=== PATIENT | female | born 1995 | race Caucasian/White ===

== ENCOUNTER 2018-06-01 00:16 | Outpatient (CLI) | payer MEDICAID, SELFPAY ==
--- NOTE | 2018-06-01 06:49 | DI.REPORT_ITS ---
SYMPTOM/DIAGNOSIS: 18 WEEK ANATOMY SURVEY Z34.90 OB ULTRASOUND: Comparison is made with 16 Mar 2018. The fetus was in variable position during the exam. The placenta is posterior. The biometric measurements correspond to 18 weeks 6 days consistent with dating from 1st ultrasound. No abnormalities are identified. The amount of amniotic fluid appears visually normal. IMPRESSION: survey is within normal limits. Many abnormalities cannot be diagnosed. A normal exam does not exclude a congenital anomaly. Radiology No. [id number] LMP: Exam Date: [facility] wks days on EDC ([facility]) 10/26/18 Confirmed: HISTORY: SURVEY ---- PREDICTED GESTATIONAL AGE NUMBER 19 +0 weeks with a range of 18 +0 week to 20 +0 weeks. 1 Determined by___1STUS___LMP_XX__HISTORY Info. pertaining to fetus # PLACENTA PRESENTATION Grade I Cephalic___ Anterior___Posterior___ Breech____ Right Left Transverse(head right___ Fundal___Low-lying___Previa___ Transverse(head left___ Varying___X___ BIOMETRY AMNIOTIC FLUID BPD: 42 mm 18 +5 weeks Normal HC: 160 mm 18 +6 weeks AC: 134 mm 18 +6 weeks FL: 29 mm 18 +6 weeks AMNIOTIC FLUID INDEX >26 WK CRL: mm weeks Cisterna Magna: 3 mm CI: 85 RUQ: LUQ Cerebellum: 1.9 cm EFW: 261 grams Percentile RLQ: LLQ Total: cms Composite AGE= 18 +6 wks EDC by US___10/27/18 BIOPHYSICAL PROFILE ANATOMY IDENTIFIED SCORE 0/2 Heart: 4-Chamber_X__Rate:BPM___145__ LVOT:____X RVOT:___X____ Amniotic Fluid(>2cms)____ Stomach:___X____ Kidneys:_X Respirations (>30 secs) Bladder:____X____ Post. Fossa:___X Body Flex/Extension 3 vessel cord:___X____Ventricles:____X cord insertion:__X___ Lips:_X___ Extremity Flex/Extension spinal morphology:__X Nose:X Total Score= Palate:__X NS=not seen
== END 2018-06-01 00:17 ==
PROVIDERS: PCP Family Medicine; Visit Provider Advanced Practice Midwife
DX: Z34.92 Encounter for supervision of normal pregnancy, unspecified, second trimester (principal)
CPT/HCPCS: 76805

== ENCOUNTER 2018-08-06 16:20 | Outpatient (CLI) | payer MEDICAID, SELFPAY ==
[2018-08-06 16:58] LABS: HCT 33.6 % (36.0-46.0); HGB 11.7 g/dL (12.0-15.5); Mean Corp. HGB Concentration 34.8 g/dL (32.0-36.0); Mean Corpuscular Hemoglobin 33.1 pg (27.0-33.0); Mean Corpuscular Volume 95.2 fL (80-95); Mean Platelet Volume 10.1 fL (8.0-11.0); Platelet Count 313 x1000/uL (130-400); RBC 3.53 m/cumm (4.00-5.20); RBC Distribution Width 13.3 % (11.7-14.6); White Blood Cell Count 14.86 k/cumm (4.4-10.8)
[2018-08-06 17:42] LABS: Glucose,1 Hr (Glucola) 107 mg/dL (80-140)
== END 2018-08-06 16:40 ==
PROVIDERS: Obstetrics & Gynecology; PCP Family Medicine; Visit Provider Obstetrics & Gynecology Gynecology
DX: O34.219 Maternal care for unspecified type scar from previous cesarean delivery (principal)
CPT/HCPCS: 36415; 82950; 85027

== ENCOUNTER 2018-09-13 01:17 | Outpatient (CLI) | payer MEDICAID, SELFPAY ==
--- NOTE | 2018-09-13 11:00 | DI.US_ITS ---
SYMPTOM/DIAGNOSIS: SIZE < DATES, O26.843 OBSTETRICAL ULTRASOUND: Comparison is made with 01 August 2018. The fetus is in cephalic position. The biometric measurements correspond to 33 weeks 4 days. The estimated weight is 2151 grams, corresponding to the 26%. The amniotic fluid index appears normal at 14.8 IMPRESSION: size and amniotic fluid are within normal limits. Many abnormalities cannot be diagnosed. A normal exam does not exclude a congenital anomaly. Radiology No. [id number] LMP: Exam Date: 09/13/18 [facility] wks days on EDC ([facility]) 10/26/18 Confirmed: HISTORY: SIZE , DATES ---- PREDICTED GESTATIONAL AGE NUMBER 33 +6 weeks with a range of 32 +6 week to 34 +6 weeks. 1 Determined by___1STUS___LMP___HISTORY Info. pertaining to fetus # PLACENTA PRESENTATION Grade II Cephalic_XX__ Anterior___Posterior__XX_ Breech____ Right Left Transverse(head right___ Fundal___Low-lying___Previa___ Transverse(head left___ Varying BIOMETRY AMNIOTIC FLUID BPD: 85 mm 34 +1 weeks Normal HC: 302 mm 33 +3 weeks AC: 288 mm 32 +6 weeks FL: 65 mm 33 +4 weeks AMNIOTIC FLUID INDEX >26 WK CRL: -- mm -- weeks Cisterna Magna: mm CI: RUQ:_4.8____LUQ___3.8 Cerebellum: -- cm EFW: 2151 grams 26% Percentile RLQ:_3.8 LLQ___2.3____ Total:___14.8_cms Composite AGE= 33 +4 wks EDC by US____10/28/18 BIOPHYSICAL PROFILE ANATOMY IDENTIFIED SCORE 0/2 Heart: 4-Chamber___Rate:BPM__144 BPM___ LVOT: RVOT: Amniotic Fluid(>2cms)____ Stomach: Kidneys: Respirations (>30 secs) Bladder: Post. Fossa: Body Flex/Extension 3 vessel cord: Ventricles: cord insertion: Lips:____ Extremity Flex/Extension spinal morphology: Nose: Total Score= Palate: NS=not seen
== END 2018-09-13 01:37 ==
PROVIDERS: PCP Family Medicine; Visit Provider Obstetrics & Gynecology
DX: O26.843 Uterine size-date discrepancy, third trimester (principal); Z36.2 Encounter for other antenatal screening follow-up
CPT/HCPCS: 76816

== ENCOUNTER 2018-09-19 17:32 | Emergency (ER) | payer MEDICAID, SELFPAY ==
[2018-09-19 17:36] VITALS: BP 96/52; PULSE 88; RESP 16; TEMP 37; O2SAT 99
--- NOTE | 2018-09-19 18:02 | W.ED.GENAD ---
Discharge Plan Disposition Patient Disposition: HOME Condition: Fair Discharge Details Chief Complaint: Cellulitis Clinical Impression: Abscess Primary Care Provider: Matt Casey ED Provider: Leslie Castrejon Home Meds and New Rx's Prescriptions: New cephalexin [Keflex] 500 mg capsule 500 mg PO QID Qty: 20 RF: 0 Continue PNV cmb#95-ferrous fumarate-FA [ Formula] 1 EACH tablet 1 tab-cap PO DAILY RF: 0 Discharge Instructions Instructions: Abscess (ED) Additional Instructions: Keep wound clean, dry, covered. You may change the dressing tomorrow. Please monitor for signs of spreading infection including surrounding redness, warmth, fevers or chills. If these begin please start Keflex as prescribed. If you begin the antibiotics please take the entire course even if symptoms improve. Please follow-up with CLINICAL INFORMATICS MANAGER as previously scheduled Referrals: Ai Arnold MD [ [facility] STAFF PHYSICIAN] - Medical Decision Making Patient is a 22-year-old female . 35-week gestation. Presenting today, accompanied by significant other, with chief concern of abscess along the right lateral aspect of section scar. The was completed in March 2017. States that the incision is healed quite well and she was not having any complications until the past 3 days. States that it started as a pimple and has grown in size since then. Significant other did try to pop this . However, no discharge was expressed. She denies any abdominal discomfort. Has good movement per her report. Reports she is otherwise feeling well. No fevers or chills On exam, patient has a 1 cm abscess on the lateral aspect of the scar. No surrounding erythema or warmth. Area is quite fluctuant. This was explored with a ultrasound which confirmed pocket of fluid. Vital signs within normal limits. Blood pressure is noted to be slightly low but I did review historically and patient does typically run in this range Consulted with Dr. Arnold regarding incision and drainage and technique that she would want assuming patient will be having upcoming repeat in the same area. We discussed needle aspiration versus incising the area. She advised open drainage of the abscess. Advised lidocaine to numb the skin. I discussed this plan with the patient. Discussed risk/benefits as well as expected procedural steps. She was understanding and wished to proceed Prior to beginning procedure, LET was applied to the area for 15 minutes. Using standard sterile technique, the area was first cleansed and then infiltrated with 1% lidocaine plain. 1 cc was used. The sufficiently anesthetized the area. While this was infusing, small amount of pus was noted to extrude from the central most point. An 11 blade was then used to incise the area. Thick yellow discharge was then expressed from the abscess. This was flushed with sterile saline and loculations were broken. Patient tolerated this well. Sterile, nonadhesive dressing was placed over this As patient is unable to see this wound secondary to her abdominal girth at this time, I have shown her significant other how to care for this. She reports that he will be performing dressing changes for her. We did discuss signs symptoms of worsening infection. At this point, there is no surrounding erythema or findings to suggest cellulitis, I do not feel that antibiotics are necessary. However, we will prescribed Keflex in the event that she develop any new or worsening symptoms. She has an appointment in 3 days with OB for follow-up. She was given strict return precautions. All of her questions and concerns were addressed and she is in agreement this plan. HPI General Mode of arrival: ambulatory. Date/Time Provider Initiated Documentation: 09/19/18 17:34. Limitations to Documentation: no limitations. Information obtained by: patient and family (accompanied by significant other). History of Present Illness 22 year old F presents to the emergency department with the chief complaint of abscess, described as moderate, with intensity rated at 7. Quality is described as aching, and is localized to the abdomen. Patient reports no radiation. Patient started experiencing this day(s) (3) and it has been constant. No relieving factors improve symptom(s), No exacerbating factors reported . Patient notes denies chest pain, cough, fever/chills and rash. Patient did receive the following treatments prior to arrival, none Related Data Home Medications Medication Instructions Recorded Confirmed PNV cmb#95-ferrous fumarate-FA 1 tab-cap PO DAILY tab-cap 03/16/18 09/19/18 [ Formula Tablet] cephalexin [Keflex] 500 mg PO QID #20 cap 09/19/18 Previous Rx's Medication Instructions Recorded cephalexin [Keflex] 500 mg PO QID #20 cap 09/19/18 Allergies Allergy/AdvReac Type Severity Reaction Status Date / Time No Known Allergies Allergy Unverified 09/19/18 17:43 General Stated Complaint: Cellulitis YULY: 3 Review of Systems Constitutional Reports as per HPI, Denies chills and Denies fever(s) Cardiovascular Denies chest pain Respiratory Denies cough Genitourinary Denies system reviewed and no additional complaints, except as docu (she denies change in urinary habits) Musculoskeletal Reports as per HPI Integumentary/Breasts Reports as per HPI, Reports erythema and Reports skin swelling Neurologic Reports as per HPI, Denies sensory deficit and Denies paresthesias PFS History of heroin use (Resolved) (Acute ~08/06/18) 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 History of delivery, currently (Acute 08/06/18) Family History Mother Substance abuse Father Substance abuse Alcohol abuse Neoplasm Sister No problems noted. Brother No problems noted. Brother No problems noted. Brother No problems noted. Brother No problems noted. Other Cerebrovascular accident section (Acute 12/10/14) Family History Mother Substance abuse Father Substance abuse Alcohol abuse Neoplasm Sister No problems noted. Brother No problems noted. Brother No problems noted. Brother No problems noted. Brother No problems noted. 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 History of delivery, currently (Acute 08/06/18) Social History adopted: No foster care: No household members: significant other number of children: 1 current occupational status: employed current occupation: PRODUCT MARKETING COORDINATOR Smoking/Tobacco Use Status: Current every day substance use type: marijuana seatbelt use: always Surgical History section (Acute 12/10/14) Social History adopted: No foster care: No household members: significant other number of children: 1 current occupational status: employed current occupation: PRODUCT MARKETING COORDINATOR Smoking/Tobacco Use Status: Current every day substance use type: marijuana seatbelt use: always Exam Const General: cooperative, healthy appearing, comfortable, no acute distress and well developed Nutritional Appearance: average body habitus and well nourished Orientation: alert and awake Resp Effort & Inspection: normal respiratory effort, able to speak in complete sentences and no respiratory distress Cardio Rate: regular rate Rhythm: regular rhythm GI Inspection: abnormal to inspection (abscess as below. Abdomen is nontender, consistent with history of 35 week gestation) Skin General skin exam: erythema (patient has focal 1cm area of erythema and fluctuance concerning for abscess. No opening in the skin, no drainage. No surrounding erythema) Neuro General: alert and awake Cognition: normal cognition Speech: speech normal Gait: normal gait Sensory Exam: no sensory deficits noted Psych Appearance: grossly normal and well kempt Mental Status: mental status grossly normal Speech and Movement: speech and movement normal Course Vital Signs Temperature 37 C 09/19/18 17:36 Pulse 88 09/19/18 17:36 Respiratory Rate 16 09/19/18 17:36 Blood Pressure 96/52 L 09/19/18 17:36 Pulse Oximetry 99 09/19/18 17:36 Temperature 37 C 09/19/18 17:36 Temperature Source Tympanic 09/19/18 17:36 Pulse 88 09/19/18 17:36 Respiratory Rate 16 09/19/18 17:36 Respiratory Effort Non-Labored 09/19/18 17:36 Blood Pressure 96/52 L 09/19/18 17:36 Blood Pressure Position Sitting 09/19/18 17:36 Pulse Oximetry 99 09/19/18 17:36 Oxygen Delivery Method Room Air 09/19/18 17:36 Oxygen Flow Rate 0 09/19/18 17:36 Pain Level 7 09/19/18 17:36
== END 2018-09-19 18:59 | disposition home or self-care (01) ==
LOC: ER 22:57
PROVIDERS: Emergency Provider Physician Assistant; PCP Family Medicine
DX: L02.211 Cutaneous abscess of abdominal wall (principal); Z3A.35 35 weeks gestation of pregnancy
CPT/HCPCS: 10060

== ENCOUNTER 2018-09-28 17:14 | Observation (INO) | payer MEDICAID, SELFPAY ==
[2018-09-28] MEDS: Terbutaline 1 MG/ML VIAL 0.25 MG SC ×2 (18:17→19:03)
[2018-09-28] MEDS: MORPHine 10 MG/ML VIAL SC (20:51)
[2018-09-28] MEDS: Lactated Ringers 1,000 ML 150 ML IV (20:51)
[2018-09-28 21:10] LABS: HCT 31.4 % (36.0-46.0); HGB 10.7 g/dL (12.0-15.5); Mean Corp. HGB Concentration 34.1 g/dL (32.0-36.0); Mean Corpuscular Hemoglobin 32.5 pg (27.0-33.0); Mean Corpuscular Volume 95.4 fL (80-95); Mean Platelet Volume 10.7 fL (8.0-11.0); Platelet Count 232 x1000/uL (130-400); RBC 3.29 m/cumm (4.00-5.20); RBC Distribution Width 12.7 % (11.7-14.6); White Blood Cell Count 16.49 k/cumm (4.4-10.8)
[2018-09-29] MEDS: Zolpidem 5 MG TAB PO (00:10)
[2018-09-29] MEDS: Terbutaline 1 MG/ML VIAL 0.25 MG SC (00:10)
[2018-09-29] MEDS: Sodium Citrate 30 ML CUP PO (00:10)
[2018-09-29] MEDS: Ondansetron 4 MG/2 ML VIAL IVP ×2 (00:34→05:52)
[2018-09-29] MEDS: Normal Saline Flush 10 ML SYR IVP ×2 (00:35→05:52)
[2018-09-29] MEDS: diphenhydrAMINE 25 MG CAP PO (00:49)
[2018-09-29] MEDS: Lactated Ringers 1,000 ML 150 ML IV (03:23)
== END 2018-09-29 06:35 | disposition home or self-care (01) ==
PROVIDERS: Admitting Provider Obstetrics & Gynecology; PCP Family Medicine; Referring Provider Advanced Practice Midwife; Visit Provider Obstetrics & Gynecology
DX: O60.03 Preterm labor without delivery, third trimester (principal); Z3A.36 36 weeks gestation of pregnancy; O34.211 Maternal care for low transverse scar from previous cesarean delivery
CPT/HCPCS: 36415; 85027; 86850; 86900; 86901; 96360; 96361; G0378; J2270; J2405

== ENCOUNTER 2018-10-01 13:11 | Outpatient (REF) | payer MEDICAID, SELFPAY | END 2018-10-01 13:31 | LOC: LBN 13:11 | PROVIDERS: PCP Family Medicine; Visit Provider Obstetrics & Gynecology | DX: O34.219 Maternal care for unspecified type scar from previous cesarean delivery (principal); Z36.85 Encounter for antenatal screening for Streptococcus B | CPT/HCPCS: 87081 ==

== ENCOUNTER 2018-10-16 22:42 | Inpatient (IN) | payer MEDICAID, SELFPAY ==
[2018-10-17] VITALS (8 sets, daily range): BP systolic 90; BP diastolic 58; PULSE 62; RESP 16; TEMP 36.5; O2SAT 98–100
[2018-10-17] MEDS: Terbutaline 1 MG/ML VIAL 0.25 MG SC (01:04)
[2018-10-17] MEDS: Acetaminophen 325 MG TAB 650 MG PO (01:05)
--- NOTE | 2018-10-17 02:58 | HPE_ITS ---
Date of service: 10/17/18 Time of Service: 02:58 Assessment and Plan (1) History of delivery: Current visit: Yes Status: Chronic Plan to proceed with repeat section. Risks of surgery were dis cussed with the patient including hemorrhage, infection and injury to other organs such as bowel and bladder. All questions were answered to the patient's satisfaction and consent for surgery was obtained. (2) Normal labor: Current visit: Yes Status: Acute History of Present Illness Chief Complaint: Contractions. Narrative: 22 year old @ 38 weeks gestation presents with regular and painful contractions for the last several hours. She denies any leakage of fluid or vaginal bleeding. Cervical exam on in itial evaluation was 2cm in dilatation. Her obstetrical history is significant for 2 prior sections and she desires to proceed with repeat this time as well. 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 She is not taking suboxone and reports no drugs use this . Review of Systems Review of Systems All systems reviewed & are unremarkable except as noted in HPI and below PFSH Family History Mother Substance abuse Father Substance abuse Alcohol abuse Neoplasm Sister No problems noted. Brother No problems noted. Brother No problems noted. Brother No problems noted. Brother No problems noted. Other Stroke Social History adopted: No foster care: No household members: significant other number of children: 1 current occupational status: employed current occupation: SERVICE OPERATIONS MANAGER Smoking/Tobacco Use Status: Current every day substance use type: marijuana seatbelt use: always History History 3 Para Hx # Term Pregnancies 2 Multiple births Hx # Pregnancies Ectopic pregnancies AB induced Hx Number of Living Children 2 AB spontaneous Past Pregnancies Del. Date GA/Weeks # Outcome Route Wgt Sex Labor Lgth Anesthesia Location Prov Complic 12/10/14 37 No Successful 6 lb 1 oz Female [facility] 03/30/17 39 No Successful 6 lb 7 oz Female [facility] Delivery Date: 03/30/17 On 07/28/18 @ 11:23 Judith Escamilla RN Breech presentation Delivery Date: 12/10/14 No notes to display Meds Home Medications Medication Instructions Recorded Confirmed Type PNV cmb#95-ferrous fumarate-FA 1 tab-cap PO DAILY tab-cap 03/16/18 10/13/18 History [ Formula Tablet] Allergies Allergy/AdvReac Type Severity Reaction Status Date / Time No Known Allergies Allergy Unverified 10/13/18 11:53 Exam HENMT Head: normal to inspection Eyes General: appearance normal, both eyes and all related structures Resp Effort & Inspection: normal respiratory effort Auscultation: clear to auscultation bilaterally Cardio Rate: regular rate Rhythm: regular rhythm Heart Sounds: S1 normal and S2 normal Skin General skin exam: no rashes or lesions noted Results Labs : 10/17/18 02:51
[2018-10-17 03:36] LABS: HCT 32.3 % (36.0-46.0); HGB 10.8 g/dL (12.0-15.5); Mean Corp. HGB Concentration 33.4 g/dL (32.0-36.0); Mean Corpuscular Hemoglobin 31.7 pg (27.0-33.0); Mean Corpuscular Volume 94.7 fL (80-95); Mean Platelet Volume 10.8 fL (8.0-11.0); Platelet Count 239 x1000/uL (130-400); RBC 3.41 m/cumm (4.00-5.20); RBC Distribution Width 12.7 % (11.7-14.6); White Blood Cell Count 16.86 k/cumm (4.4-10.8)
[2018-10-17] MEDS: Lactated Ringers 1,000 ML 200 ML IV (03:37)
[2018-10-17 04:15] LABS: *AMPHETAMINES SCREEN URINE Negative (Negative); *BARBITURATES SCREEN URINE Negative (Negative); *BENZODIAZEPINES SCREEN URINE Negative (Negative); Cannabinoids THC POSITIVE (Negative); Cocaine Screen,Urine Negative (Negative); METHADONE URINE SCREEN Negative (Negative); OPIATES URINE SCREEN Negative (Negative)
[2018-10-17 04:17] LABS: Tricyclic Antidepressants Negative (Negative)
--- NOTE | 2018-10-17 04:53 | W.PM.OP ---
Date of service: 10/17/18 Time of Service: 04:53 Operative Note DATE OF PROCEDURE: 10/17/18 PRE-OP DIAGNOSIS: 38 weeks. Prior section. Labor POST-OP DIAGNOSIS: same PROCEDURE: Repeat low transverse section SURGEON: Theron Fabian PARTS PICKER: Jean Paul Goncalves ANESTHESIA: spinal and epidural ESTIMATED BLOOD LOSS: 500 PATHOLOGY: none sent COMPLICATIONS: None Patient was transported to: floor Patient's condition: stable Findings: 1. Normal uterus, tubes, and ovaries. 2. Scarring in the vesicouterine space. 3. Delivered LBF 7,8. Nuchal cord x 2 Procedure Description: The patient was taken to the operating room and after combined spinal/epidural anesthesia was administered the patient was placed in supine position. The patient was prepped and draped in the usual sterile manner. A hernandez catheter had been placed prior to surgery. A #10 scalpel was used to make a Pfannestiel incision through the previous scar. Dissection was taken down to the fascia with the scalpel. The fascia was incised in the midline with the scalpel and the incision was carried laterally with Bradshaw scissors. The fascia was dissected off the underlying layer of rectus muscles with both blunt and sharp dissection. The rectus was divided in the midline with sharp and blunt dissection and the peritoneum entered sharply. The peritoneal incision was extended superiorly and inferiorly with Bradshaw scissors. The vesicouterine flap was elevated with pickups and dissected down with Metzenbaum scissors. A low transverse uterine incision was made with the scalpel and extended laterally in either direction via stretch. The was found in cephalic presentation and delivered atraumatically. Delivered a vigorous LBF with of 7 and 8 and nuchal cord x2. The placenta was manually extracted. The uterus was exteriorized and cleared of all clots and debris. The uterine incision was closed with a running locked stitch of #1 chromic. A second imbricating layer of #1 chromic completed the repair. The uterus was returned to the abdomen. The peritoneum was closed with a running stitch of 2-0 vicryl. The subfascial space was inspected and hemostasis achieved with limited use of the Bovie cautery. The fascia was closed with a running stitch of 0-Vicryl. The subcutaneous tissues were closed with interupted sutures of 3-0 Vicryl. The skin was closed with a running subcuticular stitch of 4-0 monocryl and dermabond applied. The procedure was concluded at this point. Sponge lap and needle counts were correct at the conclusion of the procedure and the patient was transferred to recovery in stable condition.
[2018-10-17] MEDS: Ketorolac 30 MG/ML VIAL IVP ×3 (07:11→18:57)
--- NOTE | 2018-10-17 07:16 | PDOC.ANES ---
Date of service: 10/17/18 Time of Service: 07:16 Anesthesia Note Report Anesthesia Note: Pt. is able to move lower extremities and bend both legs at her knees. She is now complaining of 10/10 abdominal/incisional discomfort and is ready for epidural catheter to be dosed. Catheter is dressed and intact, continues to be at 11cm at skin. Pt. received a total of 20 ml clinician bolus from pump with relief of discomfort to a 1/10 and no increase in leg numbness or heaviness. Plan is to maintain this epidural until day of discharge. Current rate is 10ml/hr with a PCEA of 5ml every 15 minutes with a lockout of 4/hour. Once catheter removed, may discuss doing a bilateral TAP block prior to going home if skin incision pain is not tolerable. Goal is to avoid narcotic analgesia IV/PO if at all possible per patient wishes.
[2018-10-17] MEDS: Naloxone 0.4 MG/ML VIAL IVP ×5 (09:44→20:17)
[2018-10-17] MEDS: Normal Saline Flush 10 ML SYR IVP ×7 (09:45→18:58)
[2018-10-17] MEDS: Lactated Ringers 1,000 ML 120 ML IV ×2 (12:50→21:07)
--- NOTE | 2018-10-17 15:49 | PDOC.ANES ---
Date of service: 10/17/18 Time of Service: 15:49 Anesthesia Note Report Anesthesia Note: Performed a patient chack. Pt. states she has had some itching with the epidural. The PRN Narcan seems to relieve this. Plan is to use either Narcan or Nubaine for Pruritus throughout her stay as it is working. She experienced a fall today while trying to get out of bed by herself. Nurses reinforced to her the importance of getting assitance when getting out of bed. Her epidural dressing is intact. Catheter seems to have migrated 1.5 cm out and is not slightly less than 10cm at skin. Pt's biggest concern is that she still has motor weakness with her RLE and some numbness. She is able to bend at the knee with limited flexion and move her foot but this is less than on her Left side which she states feels normal. She does believe it is improving slowly over time. As her symptoms seems to be improving, although slowly, plan is to monitor her lower extremity sensory/motor assessment hourly. If there is any concern that the improvement to baseline stops or reverses course, then further studies will be completed to asses for possible, although unlikely epidural/spinal hematoma. Anesthesia to be notified of any stall or decline in motor/sensory exam of either lower extremity.
--- NOTE | 2018-10-17 16:00 | DI.US_ITS ---
SYMPTOMS/DIAGNOSIS: PAIN AND SWELLING RIGHT LOWER EXTREMITY ULTRASOUND: The femoral and popliteal veins and visualized portions of the calf veins are freely compressible. No thrombus is visible. The Doppler venous waveform augments normally. No superficial thrombophlebitis or Garcia's cyst is seen. IMPRESSION: Negative right lower extremity ultrasound. No evidence of DVT.
[2018-10-17] MEDS: Ondansetron 4 MG/2 ML VIAL IVP ×2 (16:08→23:30)
--- NOTE | 2018-10-17 16:24 | DI.VRAD_ITS ---
EXAM: US Right Duplex Lower Extremity Veins, Limited EXAM DATE/TIME: 10/17/2018 4:04 PM CLINICAL HISTORY: 22 years old, female; Signs and symptoms; Other: Pain and swelling TECHNIQUE: Real-time Duplex ultrasound of the Right Lower Extremity with 2-D rivas scale, color Doppler flow and spectral waveform analysis. Limited exam was focused on the right lower extremity veins. COMPARISON: No relevant prior studies available. FINDINGS: The visualized deep veins of the right lower extremity are patent and compressible. No evidence of deep venous thrombosis. IMPRESSION: Negative examination for DVT. Dictated and Authenticated by: Jake Chowdhury MD. Ordering:PITER Crump MD
--- NOTE | 2018-10-17 21:48 | DI.CT_ITS ---
SYMPTOM/DIAGNOSIS: ? SPIRAL EPIDURAL HEMATOMA, MOTOR SENSORY DEFICIT LUMBAR SPINE CT: Images were performed from the lower thoracic region through the sacrum after IV contrast. There is no evidence of fracture. The disc spaces are well maintained. There is an epidural catheter seen at the L 3 level. There is air seen with the epidural space secondary to the presence of the catheter. No fluid collection or hematoma is visible. The uterus appears enlarged secondary to recent status. IMPRESSION: Epidural catheter and epidural air. No visible abscess.
--- NOTE | 2018-10-17 23:09 | DI.VRAD_ITS ---
EXAM: CT Lumbar Spine With Contrast EXAM DATE/TIME: 10/17/2018 10:11 PM CLINICAL HISTORY: 22 years old, female; Signs and symptoms; Numbness; Patient HX: Right sided numbness/motor/sensory deficit, rule out spinal epidural hematoma. ; Additional info: Recent epidural for TECHNIQUE: Axial computed tomography images of the lumbar spine with intravenous contrast. All CT scans at this facility use at least one of these dose optimization techniques: automated exposure control; mA and/or kV adjustment per patient size (includes targeted exams where dose is matched to clinical indication); or iterative reconstruction. CONTRAST: 100 ml of Omipaque 350 administered intravenously. COMPARISON: No relevant prior studies available. FINDINGS: Vertebrae: No acute fracture. Normal alignment. Epidural space: Epidural catheter in place with tip in posterior epidural space at L3 level. Multiple adjacent pockets of epidural air seen in posterior and right lateral epidural space extending to the L2-L3 foramina which appears to be secondary to instrumentation. No evidence of epidural hematoma or fluid collection. No canal stenosis. Discs/Spinal canal/Neural foramina: See Epidural Space Finding. Soft tissues: Unremarkable. Reproductive: uterus. Mims catheter in place. IMPRESSION: Epidural catheter in place with tip in posterior epidural space at L3 level. Multiple adjacent pockets of epidural air seen in posterior and right lateral epidural space extending to the L2-L3 foramina which appears to be secondary to instrumentation. No evidence of epidural hematoma or fluid collection. No canal stenosis. Dictated and Authenticated by: Porsche Pelletier MD. Ordering:DONADL Allen MD
--- NOTE | 2018-10-17 23:18 | PDOC.ANES ---
Date of service: 10/17/18 Time of Service: 23:19 CT Scan completed with the findings as below. IMPRESSION: Epidural catheter in place with tip in posterior epidural space at L3 level. Multiple adjacent pockets of epidural air seen in posterior and right lateral epidural space extending to the L2-L3 foramina which appears to be secondary to instrumentation. No evidence of epidural hematoma or fluid collection. No canal stenosis. Given these findings, plan is to continue to do neuro checks every 4 hours and notify Anesthesia is motor or sensory exam worsens. Tomorrow morning, if improvement in motor and sensory exam to the right leg improves, then plan is to maintain epidural catheter and infusion until discharge and then after removal potentially perform TAP blocks and discharge pt. home. However if motor/sensory exam remains the same or worsens, then the epidural infusion will be stopped and catheter removed. In this case, the recommended plan will be to place bilateral TAP blocks to provide analgesia for lower abdomen incision pain. If right leg deficits do not improve after D/C epidural, then will likely get a neuro consult. The Epidural catheter now only appears to be in the epidural space 1.5->2cm per CT, so there is really no room to withdraw catheter as well to optimize medication placement, plus the fact that the CT reads catheter in posterior epidural space. Dr. Lawson advised of findings and agrees with plan.
--- NOTE | 2018-10-17 23:24 | ANES_ITS ---
Date of service: 10/17/18 Time of Service: 23:19 CT Scan completed with the findings as below. IMPRESSION: Epidural catheter in place with tip in posterior epidural space at L3 level. Multiple adjacent pockets of epidural air seen in posterior and right lateral epidural space extending to the L2-L3 foramina which appears to be secondary to instrumentation. No evidence of epidural hematoma or fluid collection. No canal stenosis. Given these findings, plan is to continue to do neuro checks every 4 hours and notify Anesthesia is motor or sensory exam worsens. Tomorrow morning, if improvement in motor and sensory exam to the right leg improves, then plan is to maintain epidural catheter and infusion until discharge and then after removal potentially perform TAP blocks and discharge pt. home. However if motor/sensory exam remains the same or worsens, then the epidural infusion will be stopped and catheter removed. In this case, the recommended plan will be to place bilateral TAP blocks to provide analgesia for lower abdomen incision pain. If right leg deficits do not improve after D/C epidural, then will likely get a neuro co nsult. The Epidural catheter now only appears to be in the epidural space 1.5- >2cm per CT, so there is really no room to withdraw catheter as well to optimize medication placement, plus the fact that the CT reads catheter in posterior epidural space. Dr. Lawson advised of findings and agrees with plan.
[2018-10-18] MEDS: Ketorolac 30 MG/ML VIAL IVP (01:01)
[2018-10-18] MEDS: Naloxone 0.4 MG/ML VIAL IVP ×2 (01:07→05:21)
[2018-10-18] MEDS: Lactated Ringers 1,000 ML 120 ML IV (05:15)
[2018-10-18] MEDS: Ondansetron 4 MG/2 ML VIAL IVP (07:12)
[2018-10-18 09:27] LABS: HCT 29.1 % (36.0-46.0); HGB 9.7 g/dL (12.0-15.5); Mean Corp. HGB Concentration 33.3 g/dL (32.0-36.0); Mean Corpuscular Hemoglobin 31.8 pg (27.0-33.0); Mean Corpuscular Volume 95.4 fL (80-95); Mean Platelet Volume 10.8 fL (8.0-11.0); Platelet Count 220 x1000/uL (130-400); RBC 3.05 m/cumm (4.00-5.20); RBC Distribution Width 12.8 % (11.7-14.6); White Blood Cell Count 14.04 k/cumm (4.4-10.8)
--- NOTE | 2018-10-18 10:38 | PDOC.ANES ---
Date of service: 10/18/18 Time of Service: 08:15 Anesthesia Note Report Anesthesia Note: Epidural infusion stopped on patient per request of anesthesia. Epidural catheter removed, tip intact. Patient continues to have 3/5 weakness to right lower extremity. Will continue to monitor motor strength. Patient reports no discomfort currently. Discussed doing bilateral TAP block prior to going home if skin incision pain not tolerable.
[2018-10-18] MEDS: Acetaminophen 325 MG TAB 650 MG PO (12:48)
[2018-10-18] MEDS: Normal Saline Flush 10 ML SYR IVP (14:20)
--- NOTE | 2018-10-18 15:12 | W.PM.PROGNOT ---
Date of Service Date of service: 10/18/18 Time of Service: 15:12 Assessment and Plan (1) delivery delivered: Current visit: Yes Status: Acute Patient may ambulate with assistance. Once she is ambulating will remove hernandez catheter and allow to shower. Continue routine postop care. (2) History of substance abuse: Current visit: Yes Status: Acute Will continue to try and manage her pain with NSAIDs and tylenol only. She seems to be doing well with this. We had a lengthy discussion regarding the rationale for this and she is in agreement. Will add narcotics only if absolutely necessary which I don't believe to be the case at this point. (3) Paresthesia of right leg: Current visit: Yes Status: Acute Likely epidural related. Improving. Will continue to monitor. Subjective Interval history since last seen: Doing well today. She did have several issues since the time of surgery. First she had developed numbness in her RLE, which was likely related to the epidural and we did obtain a CT to rule out epidural hematoma which was negative. The epidural was removed this morning and she regained sensation quite readily. She did also have some edema unilaterally inthe RLE and venous duplex was also obtained and was negative. I had a lengthy discussion with the patient. Her medical record indicates a history of narcotic abuse in the past, which provided the rationale to attempt to manage her pain without narcotics in the postoperative period. She does report a history of abuse of benzodiazapines and alcohol but reports that the heroin abuse noted in her record is inaccurate. Objective Objective Clinical Data: Abnormal lab results 10/18/18 Range/Units 09:00 WBC 14.04 H (4.4-10.8) k/cumm RBC 3.05 L (4.00-5.20) m/cumm Hgb 9.7 L (12.0-15.5) g/dL Hct 29.1 L (36.0-46.0) % MCV 95.4 H (80-95) fL Vital Signs Temperature 97.7 F 10/17/18 11:40 Pulse 62 10/17/18 11:40 Respiratory Rate 16 10/17/18 13:30 Blood Pressure 90/58 L 10/17/18 11:40 Pulse Oximetry 100 10/17/18 13:30 Oxygen Delivery Method Room Air 10/17/18 13:30 Oxygen Flow Rate 0 12/30/18 13:30 Pain Level 5 10/18/18 12:48 Comment 10/17/18 13:30 Intake & Output 10/17/18 10/18/18 10/18/18 23:59 11:59 23:59 Intake Total 2044.5 / 3591.167 Balance 2044.5 / 3091.167 Intake: IV 2044.5 / 3591.167 Laboratory Results WBC 14.04 k/cumm (4.4-10.8) H 10/18/18 09:00 RBC 3.05 m/cumm (4.00-5.20) L 10/18/18 09:00 Hgb 9.7 g/dL (12.0-15.5) L 10/18/18 09:00 Hct 29.1 % (36.0-46.0) L 10/18/18 09:00 MCV 95.4 fL (80-95) H 10/18/18 09:00 MCH 31.8 pg (27.0-33.0) 10/18/18 09:00 MCHC 33.3 g/dL (32.0-36.0) 10/18/18 09:00 RDW 12.8 % (11.7-14.6) 10/18/18 09:00 Plt Count 220 x1000/uL (130-400) 10/18/18 09:00 MPV 10.8 fL (8.0-11.0) 10/18/18 09:00 Urine Opiates Screen Negative (Negative) 10/17/18 03:00 Urine Methadone Screen Negative (Negative) 10/17/18 03:00 Ur Barbiturates Screen Negative (Negative) 10/17/18 03:00 Ur Tricyclics Screen Negative (Negative) 10/17/18 03:00 Ur Amphetamines Screen Negative (Negative) 10/17/18 03:00 U Benzodiazepines Scrn Negative (Negative) 10/17/18 03:00 Urine Cocaine Screen Negative (Negative) 10/17/18 03:00 Ur THC Screen Positive (Negative) 10/17/18 03:00 Patient ABO/Rh O Positive 10/17/18 03:05 Antibody Screen Negative 10/17/18 03:05
[2018-10-18] MEDS: Ibuprofen 600 MG TAB PO ×2 (16:37→21:01)
[2018-10-18] MEDS: oxyCODONE 5 mg/Acetaminophen 325 mg TAB 1 TAB PO ×2 (17:50→23:55)
[2018-10-19] MEDS: Docusate Sodium 100 MG CAP PO ×2 (00:28→07:57)
[2018-10-19] MEDS: Ibuprofen 600 MG TAB PO ×3 (02:56→14:34)
[2018-10-19] MEDS: oxyCODONE 5 mg/Acetaminophen 325 mg TAB 1 TAB PO ×4 (04:00→16:31)
--- NOTE | 2018-10-19 09:23 | W.PM.PROGNOT ---
Date of Service Date of service: 10/19/18 Time of Service: 09:23 Assessment and Plan (1) Status post repeat low transverse section: Current visit: Yes Status: Acute Continue routine postop care. Will continue Percocet for pain. Subjective Interval history since last seen: Doing well. Pain control improved overnight after addition of percocet. Tolerating regular diet. Minimal lochia. Exam GI Other: Soft. Appropriately tender. Incision C/D/I Objective Objective Clinical Data: Abnormal lab results 10/18/18 Range/Units 09:00 WBC 14.04 H (4.4-10.8) k/cumm RBC 3.05 L (4.00-5.20) m/cumm Hgb 9.7 L (12.0-15.5) g/dL Hct 29.1 L (36.0-46.0) % MCV 95.4 H (80-95) fL Vital Signs Temperature 97.7 F 10/17/18 11:40 Pulse 62 10/17/18 11:40 Respiratory Rate 16 10/17/18 13:30 Blood Pressure 90/58 L 10/17/18 11:40 Pulse Oximetry 100 10/17/18 13:30 Oxygen Delivery Method Room Air 10/17/18 13:30 Oxygen Flow Rate 0 10/17/18 13:30 Pain Level 8 10/19/18 07:55 Comment 10/17/18 13:30 Laboratory Results WBC 14.04 k/cumm (4.4-10.8) H 10/18/18 09:00 RBC 3.05 m/cumm (4.00-5.20) L 10/18/18 09:00 Hgb 9.7 g/dL (12.0-15.5) L 10/18/18 09:00 Hct 29.1 % (36.0-46.0) L 10/18/18 09:00 MCV 95.4 fL (80-95) H 10/18/18 09:00 MCH 31.8 pg (27.0-33.0) 10/18/18 09:00 MCHC 33.3 g/dL (32.0-36.0) 10/18/18 09:00 RDW 12.8 % (11.7-14.6) 10/18/18 09:00 Plt Count 220 x1000/uL (130-400) 10/18/18 09:00 MPV 10.8 fL (8.0-11.0) 10/18/18 09:00 Urine Opiates Screen Negative (Negative) 10/17/18 03:00 Urine Methadone Screen Negative (Negative) 10/17/18 03:00 Ur Barbiturates Screen Negative (Negative) 10/17/18 03:00 Ur Tricyclics Screen Negative (Negative) 10/17/18 03:00 Ur Amphetamines Screen Negative (Negative) 10/17/18 03:00 U Benzodiazepines Scrn Negative (Negative) 10/17/18 03:00 Urine Cocaine Screen Negative (Negative) 10/17/18 03:00 Ur THC Screen Positive (Negative) 10/17/18 03:00 Patient ABO/Rh O Positive 10/17/18 03:05 Antibody Screen Negative 10/17/18 03:05
[2018-10-19] MEDS: Milk of Magnesia 30 ML CUP PO (10:55)
== END 2018-10-19 17:00 | disposition home or self-care (01) | DRG 787 ==
PROVIDERS: Admitting Provider Obstetrics & Gynecology; PCP Family Medicine; Visit Provider Obstetrics & Gynecology
PROC: 10D00Z1 Extraction of Products of Conception, Low, Open Approach (ICD-10-PCS; CPT 59514; principal; 2018-10-17 02:55)
DX: O75.82 Onset (spontaneous) of labor after 37 completed weeks of gestation but before 39 completed weeks gestation, with delivery by (planned) cesarean section (principal); R29.0 Tetany; O69.81X0 Labor and delivery complicated by cord around neck, without compression, not applicable or unspecified; O34.211 Maternal care for low transverse scar from previous cesarean delivery; Z37.0 Single live birth; Z3A.38 38 weeks gestation of pregnancy; O99.334 Smoking (tobacco) complicating childbirth; F17.210 Nicotine dependence, cigarettes, uncomplicated; O90.89 Other complications of the puerperium, not elsewhere classified; R60.0 Localized edema; M79.661 Pain in right lower leg
CPT/HCPCS: 59514; 36415; 80307; 85027; 86850; 86900; 86901; 99223; 99233; NC; 72132; 93971; G0378; J0690; J1885; J2250; J2310; J2405; J3490

== ENCOUNTER 2019-02-25 11:31 | Outpatient (REF) | payer MEDICAID, SELFPAY ==
[2019-02-25 13:32] LABS: Abs Immature Grans 0.01 k/cumm (0.0-0.09); Absolute Basophil Count 0.03 k/cumm (0.0-0.2); Absolute Eosinophil Count 0.38 k/cumm (0.0-0.7); Absolute Lymphocyte Count 2.15 k/cumm (1.2-3.4); Absolute Monocyte Count 0.83 k/cumm (0.11-0.7); Absolute Neutrophil Count 4.69 k/cumm (1.2-6.7); Basophils % 0.4; Eosinophils % 4.7; HCT 37.6 % (36.0-46.0); HGB 12.2 g/dL (12.0-15.5); Immature Grans % 0.1; Lymphocytes % 26.6; Mean Corp. HGB Concentration 32.4 g/dL (32.0-36.0); Mean Corpuscular Hemoglobin 29.8 pg (27.0-33.0); Mean Corpuscular Volume 91.7 fL (80-95); Mean Platelet Volume 10.8 fL (8.0-11.0); Monocytes % 10.3; Neutrophils % 57.9; Platelet Count 348 x1000/uL (130-400); RBC Distribution Width 13.7 % (11.7-14.6); White Blood Cell Count 8.09 k/cumm (4.4-10.8)
[2019-02-25 13:47] LABS: Iron 12 ug/dL (50-175); Total Iron Binding Capacity 287 ug/dL (250-450); Transferrin Sat 4 % (15-50)
[2019-02-25 13:51] LABS: TSH (W/Ref FT4) 0.86 uIU/mL (0.358-3.74)
== END 2019-02-25 11:51 ==
LOC: LBN 11:31
PROVIDERS: PCP Family Medicine; Visit Provider Family Medicine
DX: D64.9 Anemia, unspecified (principal); R53.83 Other fatigue
CPT/HCPCS: 83540; 83550; 84443; 85025

== ENCOUNTER 2019-09-19 10:38 | Outpatient (REF) | payer SELFPAY | END 2019-09-19 10:58 | LOC: LBN 10:38 | PROVIDERS: PCP Family Medicine; Visit Provider Family Medicine | DX: R30.0 Dysuria (principal) | CPT/HCPCS: 87086 ==

== ENCOUNTER 2021-02-13 03:20 | Outpatient (CLI) | payer MEDICAID, SELFPAY ==
[2021-02-14 11:30] LABS: COVID-19 RT-PCR UVMMC Result Negative (Negative)
== END 2021-02-13 03:21 | disposition home or self-care (01) ==
LOC: LBO 03:21
PROVIDERS: PCP Family Medicine; Visit Provider Family Medicine
DX: Z20.822 Contact with and (suspected) exposure to COVID-19 (principal)
CPT/HCPCS: U0003

== ENCOUNTER 2021-10-30 15:57 | Outpatient (REF) | payer MEDICAID, SELFPAY ==
[2021-11-01 16:43] LABS: COVID-19 RT-PCR UVMMC Result Negative (Negative)
== END 2021-10-30 15:58 | disposition home or self-care (01) ==
LOC: LBN 15:57
PROVIDERS: PCP Family Medicine; Visit Provider Nurse Practitioner
DX: J02.9 Acute pharyngitis, unspecified (principal); R05.9 Cough, unspecified; Z20.822 Contact with and (suspected) exposure to COVID-19
CPT/HCPCS: U0003

== ENCOUNTER 2021-11-21 09:08 | Outpatient (REF) | payer MEDICAID, SELFPAY | END 2021-11-21 09:09 | disposition home or self-care (01) | LOC: LBN 09:08 | PROVIDERS: PCP Family Medicine; Visit Provider Family Medicine | DX: R30.0 Dysuria (principal) | CPT/HCPCS: 87086 ==

== ENCOUNTER 2022-04-30 11:40 | Outpatient (REF) | payer MEDICAID, SELFPAY ==
--- NOTE | 2022-04-30 08:45 | PAPFT_PTH ---
PATIENT: Tess Flores LOC: [facility] U#:[id number] AGE/SX: 26/F ROOM: RE04/30/[address]: Daja Richter NP : 1995 BED: DIS: 04/30/2022 SPEC #: [id number] RECD: 04/30/22 12:51 STATUS: MADELEINEJag REMack #: [id number] YANA: 04/30/22 08:[address]: Daja Richter NP [facility] Cytology RECD BY: Fay Atkinson ENTERED: 04/30/22 12:51 SP TYPE: PAPFT OTHR DR: Matt Casey, Tissues: 1 - CX/ENDOCX FOR PAP SMEARS Procedures: PAP THIN PREP/[facility] Screening Comments: [id number]
== END 2022-04-30 11:41 | disposition home or self-care (01) ==
LOC: LBN 11:40
PROVIDERS: PCP Family Medicine; Visit Provider Nurse Practitioner Women's Health
DX: Z12.4 Encounter for screening for malignant neoplasm of cervix (principal)
CPT/HCPCS: 88142

== ENCOUNTER → 2022-06-09 02:08 | Outpatient (CLI) | payer MEDICAID, SELFPAY ==
--- NOTE | 2022-06-09 06:45 | DI.US_ITS ---
Exam(s) US PELVIS EXAM: US PELVIS CLINICAL HISTORY: ABNL UTERINE BLEEDING for 4 months s/p TAB, fullness on L,N93.9. TECHNIQUE: Transabdominal pelvic ultrasound was performed using standard protocol. The patient elec paramjit to forego the transvaginal portion of the examination. COMPARISON: US US OB GRACY weight from 09/13/2018 FINDINGS: KIDNEYS: Kidneys are symmetric in size. No evidence of renal calculi. No evidence of hydronephrosis. No renal mass or cyst identified. UTERUS: Position: Anteverted. Size: 8.2 long by 3.8 AP by 6.5 transverse cm Endometrium: 0.9 cm. Normal for patient's menstrual status. Myometrium: Unremarkable. Cervix: Unremarkable. OVARIES: The left ovary was not seen transabdominally. No left adnexal masses present. Right: 3.1 x 2.5 x 1.9 cm Cyst or mass: No suspicious cystic or solid masses. DOPPLER: Color: Blood flow seen to the right ovary. CUL-DE-SAC: Free fluid: None. Other: None. IMPRESSION: 1. Transabdominal only examination was performed at the patient's request. 2. Normal sonographic appearance of the kidneys. 3. Normal-appearing uterus with endometrial stripe within normal limits. 4. The right ovary is unremarkable. 5. The left ovary was not visualized transabdominally. No left adnexal mass is seen sonographically. DATA REPOSITORY:
== END ==
PROVIDERS: PCP Family Medicine; Visit Provider Nurse Practitioner Women's Health
DX: N93.8 Other specified abnormal uterine and vaginal bleeding (principal)
CPT/HCPCS: 76856

== ENCOUNTER 2023-05-15 17:02 | Outpatient (REF) | payer MEDICAID, SELFPAY ==
[2023-05-15 18:18] LABS: Abs Immature Grans 0.01 10^3/uL (0.0-0.06); Absolute Basophil Count 0.03 10^3/uL (0.0-0.2); Absolute Eosinophil Count 0.05 10^3/uL (0.0-0.7); Absolute Lymphocyte Count 2.23 10^3/uL (1.2-3.4); Absolute Monocyte Count 0.72 10^3/uL (0.1-0.8); Absolute Neutrophil Count 5.21 10^3/uL (1.2-6.7); Basophils % 0.4; Eosinophils % 0.6; HCT 38.2 % (36.0-46.0); HGB 13.2 g/dL (11.2-15.7); Immature Grans % 0.1; MCH 32.1 pg (27.0-33.0); MCHC 34.6 % (32.0-36.0); MCV 93 fL (80-95); MPV 9.9 fL (8.0-11.0); Monocytes % 8.7; Neutrophils % 63.2; Platelet Count 279 10^3/uL (130-400); RBC 4.11 10^6/uL (3.93-5.22); RDW-SD 41.5 fL; WBC 8.25 10^3/uL (4.4-10.8)
[2023-05-15 18:33] LABS: Mono Screening Negative (Negative)
[2023-05-15 18:34] LABS: ALT 16 U/L (14-59); AST 17 U/L (15-37); Albumin 4.1 g/dL (3.4-5.0); Alkaline Phosphatase 60 U/L (46-116); BUN 13 mg/dL (7-18); Bilirubin, Total 0.3 mg/dL (0.2-1.0); CREATININE 0.7 mg/dL (0.55-1.02); Calcium 8.7 mg/dL (8.5-10.1); Chloride 103 mmol/L (98-107); Estimated GFR 121.49 (mL/min/1.73m2); Glucose 89 mg/dL (74-106); Potassium 3.8 mmol/L (3.5-5.1); Sodium 137 mmol/L (136-145); Total Protein 7.9 g/dL (6.4-8.2)
== END 2023-05-15 17:03 | disposition home or self-care (01) ==
LOC: LBN 17:02
PROVIDERS: PCP Family Medicine; Referring Provider Student in an Organized Health Care Education/Training Program; Visit Provider Student in an Organized Health Care Education/Training Program
DX: B27.90 Infectious mononucleosis, unspecified without complication (principal); J02.9 Acute pharyngitis, unspecified; K76.89 Other specified diseases of liver; R59.1 Generalized enlarged lymph nodes
CPT/HCPCS: 80053; 85025; 86308; 87070; 87081

== ENCOUNTER 2023-09-27 11:41 | Emergency (ER) | payer MEDICAID, SELFPAY ==
[2023-09-27 11:41] VITALS: BP 110/71; PULSE 77; RESP 15; TEMP 37; O2SAT 98
[2023-09-27 13:19] LABS: COVID-19 PCR Negative (Negative); Influenza A PCR Negative (Negative); Influenza B PCR Negative (Negative); RSV PCR Negative (Negative)
[2023-09-27 13:26] LABS: Source Nasopharynx
--- NOTE | 2023-09-27 14:23 | W.EDPROG ---
Date of service: 09/27/23 Time of Service: 14:23 Medical Decision Making Signed up for the patient while they are in the waiting room as we had no beds in the ED at that time, the patient left without me fully performing a medical screening examination but I had signed up to order a COVID swab for the patient while he waited which was negative for flu, COVID and RSV. Medical Records Medical records reviewed: Yes I reviewed the patient's medical records. Lab Data Lab results reviewed: Yes I reviewed the patient's lab results. Labs: Laboratory Tests Range/Units 09/27/23 12:15 COVID-19 Source Nasopharynx SARS-CoV-2 (PCR) (Negative) Negative Influenza Type A (PCR) (Negative) Negative Influenza Type B (PCR) (Negative) Negative RSV (PCR) (Negative) Negative Discharge Plan Discharge Details Chief Complaint: RespSymp Primary Care Provider: Matt Casey ED Provider: Dimitris Monahan Home Meds and New Rx's Prescriptions: No Action magic mouthwash (swish/gargle/spit) QID See Rx Instructions .ROUTE .COMPLEX Qty: 100 0RF Rx Instructions: Diphenhydramine (200mL)+Maalox(200mL)+Viscous Lidocaine(100mL); magic mouthwash 15 ml PO QID Qty: 500 1RF Rx Instructions: Trial Swish & Spit x 3 days Diphenhydramine (200mL)+Maalox(200mL)+Viscous Lidocaine(100mL) fluconazole 150 mg tablet 150 mg PO ONCE Qty: 2 0RF Rx Instructions: as a single dose, may repeat if severe , 72H
== END 2023-09-27 12:52 | disposition left against medical advice (07) ==
LOC: ER 12:16
PROVIDERS: Emergency Provider Physician Assistant; PCP Family Medicine
DX: Z53.21 Procedure and treatment not carried out due to patient leaving prior to being seen by health care provider (principal)
CPT/HCPCS: 00123; 87637